=== PATIENT | female | born 1970 | race Caucasian/White ===

== ENCOUNTER → 2016-10-20 | Outpatient (CLI) | payer OTHER ==
[2016-10-20 14:10] VITALS: BP 167/79; PULSE 109; RESP 16; TEMP 98.7; BMI 46.0
--- NOTE | 2016-10-20 14:47 | P.HPBAR ---
Bariatric H&P - History & Physicial H&P Date: 10/20/16 History & Physicial: Visit/CC: SWL visit Patient initial contact: Initial weight: 139.253 kg Initial weight in pounds: 307.00 Height: 5 ft 5 in Initial BMI: 51.0 Last weight: Current weight: 125.362 kg Current weight in pounds: 276.00 Current BMI: 46.0 [place] body weight (based on NIH guidelines): 56.699 kg Excess body weight loss: 17.0% The patient is a 46 year-old F who presents for Bariatric Assessment. Patient presents for preop sleeve follow-up. The patient is still having dysphagia from her LAP-BAND. She has lost to be away from her last visit. Past Medical History Past Medical History: Hypertension Additional Past Medical History / Comment(s): HAVING DIFFICULTY WITH LAP BAND ( PER PATIENT) History of Any Multi-Drug Resistant Organisms: None Reported Past Surgical History: Bariatric Surgery, Section, Cholecystectomy Additional Past Surgical History / Comment(s): Lap band Past Anesthesia/Blood Transfusion Reactions: No Reported Reaction Past Psychological History: Anxiety, Depression Smoking Status: Former smoker Past Alcohol Use History: Occasional Additional Past Alcohol Use History / Comment(s): LIGHT SMOKER, QUIT IN 1991. Past Drug Use History: None Reported Surgical - Exam Vital Signs Temp Pulse Resp BP 98.7 F 109 H 16 167/79 10/20/16 14:05 10/20/16 14:05 10/20/16 14:05 10/20/16 14:05 - General well developed, no distress - Eyes PERRL - ENT normal pinna - Neck no masses - Respiratory normal expansion - Cardiovascular Rhythm: regular - Abdomen Abdomen: soft, non tender Bariatric Assessment & Plan Plan: Chronic GERD and dysphagia from LAP-BAND. Patient is attempting to obtain insurance authorization for conversion to sleeve gastrectomy. Her current BMI is 46. She'll follow up in 1 month. She'll continue taking omeprazole for GERD. Bariatric Checklist Checklist: Plan: Checklist: EGD: 1. Hiatal hernia: 2. H. Pylori: HgbA1c: Vitamin D: Smoking: Former smoker Primary care physician referral: DR CAMPOS Psychiatry clearance: Cardiology clearance: Sleep study: Diet journal: VTE risk score: VTE risk level: Rehab needs at discharge:
== END | disposition home or self-care (01) ==
LOC: BARWHC3 13:30
PROVIDERS: ATTEND Surgery
DX: Z48.815 Encounter for surgical aftercare following surgery on the digestive system (principal); R13.10 Dysphagia, unspecified; K21.9 Gastro-esophageal reflux disease without esophagitis; Z68.42 Body mass index [BMI] 45.0-49.9, adult; Z87.891 Personal history of nicotine dependence; Z79.899 Other long term (current) drug therapy; Z98.84 Bariatric surgery status
CPT/HCPCS: 99211

== ENCOUNTER → 2016-11-17 | Outpatient (CLI) | payer OTHER ==
[2016-11-17 15:31] VITALS: BP 145/78; PULSE 115; RESP 16; TEMP 98.5; BMI 45.4
--- NOTE | 2016-11-17 15:48 | P.HPBAR ---
Bariatric H&P - History & Physicial H&P Date: 11/17/16 History & Physicial: Visit/CC: BALWINDER Patient initial contact: Initial weight: 139.253 kg Initial weight in pounds: 307.00 Height: 5 ft 5 in Initial BMI: 51.0 Last weight: Current weight: 123.916 kg Current weight in pounds: 273.00 Current BMI: 45.4 [place] body weight (based on NIH guidelines): 56.699 kg Excess body weight loss: 18.6% The patient is a 46 year-old F who presents for Bariatric Assessment. The patient presents today for follow-up. Her current BMI is 45. Her weight is 273 pounds. She still is complaining of GERD due to her LAP-BAND. Past Medical History Past Medical History: Hypertension Additional Past Medical History / Comment(s): HAVING DIFFICULTY WITH LAP BAND ( PER PATIENT) History of Any Multi-Drug Resistant Organisms: None Reported Past Surgical History: Bariatric Surgery, Section, Cholecystectomy Additional Past Surgical History / Comment(s): Lap band Past Anesthesia/Blood Transfusion Reactions: No Reported Reaction Past Psychological History: Anxiety, Depression Smoking Status: Former smoker Past Alcohol Use History: Occasional Additional Past Alcohol Use History / Comment(s): LIGHT SMOKER, QUIT IN 1991. Past Drug Use History: None Reported Surgical - Exam Vital Signs Temp Pulse Resp BP 98.5 F 115 H 16 145/78 11/17/16 15:28 11/17/16 15:28 11/17/16 15:28 11/17/16 15:28 - General well developed, no distress - Eyes PERRL - ENT normal pinna - Neck no masses - Respiratory normal expansion - Cardiovascular Rhythm: regular - Abdomen Abdomen: soft, non tender Bariatric Assessment & Plan Plan: GERD secondary LAP-BAND. Patient wishes to have her LAP-BAND removed in conversion sleeve gastrectomy. Patient continue Prilosec. Bariatric Checklist Checklist: Plan: Checklist: EGD: 1. Hiatal hernia: 2. H. Pylori: HgbA1c: Vitamin D: Smoking: Former smoker Primary care physician referral: DR CAMPOS Psychiatry clearance: Cardiology clearance: Sleep study: Diet journal: VTE risk score: VTE risk level: Rehab needs at discharge:
== END | disposition home or self-care (01) ==
LOC: BARWHC3 14:46
PROVIDERS: ATTEND Surgery
DX: Z48.815 Encounter for surgical aftercare following surgery on the digestive system (principal); E66.01 Morbid (severe) obesity due to excess calories; Z68.42 Body mass index [BMI] 45.0-49.9, adult; K21.9 Gastro-esophageal reflux disease without esophagitis; Z87.891 Personal history of nicotine dependence; Z79.899 Other long term (current) drug therapy
CPT/HCPCS: 99211

== ENCOUNTER → 2016-12-15 | Outpatient (CLI) | payer OTHER ==
[2016-12-15 17:12] VITALS: BP 132/78; PULSE 104; RESP 16; TEMP 98.4; BMI 46.0
--- NOTE | 2016-12-16 08:06 | P.HPBAR ---
Bariatric H&P - History & Physicial H&P Date: 12/16/16 History & Physicial: Visit/CC: last SWL Patient initial contact: Initial weight: 139.253 kg Initial weight in pounds: 307.00 Height: 5 ft 5 in Initial BMI: 51.0 Last weight: Current weight: 125.645 kg Current weight in pounds: 277.00 Current BMI: 46.0 [place] body weight (based on NIH guidelines): 56.699 kg Excess body weight loss: 16.4% The patient is a 46 year-old F who presents for Bariatric Assessment. This is a 46-year-old female who presents for bariatric follow up. Patient is requesting to have sleeve gastrectomy. She states that she is unable lose any weight by further dieting. She still has complaints of GERD due to her LAP- BAND. Her BMI today is 46.1 Review of Systems Constitutional: Reports as per HPI Past Medical History Past Medical History: Hypertension Additional Past Medical History / Comment(s): HAVING DIFFICULTY WITH LAP BAND ( PER PATIENT) History of Any Multi-Drug Resistant Organisms: None Reported Past Surgical History: Bariatric Surgery, Section, Cholecystectomy Additional Past Surgical History / Comment(s): Lap band Past Anesthesia/Blood Transfusion Reactions: No Reported Reaction Past Psychological History: Anxiety, Depression Smoking Status: Former smoker Past Alcohol Use History: Occasional Additional Past Alcohol Use History / Comment(s): LIGHT SMOKER, QUIT IN 1991. Past Drug Use History: None Reported Surgical - Exam Vital Signs Temp Pulse Resp BP 98.4 F 104 H 16 132/78 12/15/16 16:34 12/15/16 16:34 12/15/16 16:34 12/15/16 16:34 - General well developed, no distress - Eyes PERRL - ENT normal pinna - Neck no masses - Respiratory normal expansion - Cardiovascular Rhythm: regular - Abdomen Abdomen: soft, non tender Bariatric Assessment & Plan Plan: Morbid obesity. GERD due to LAP-BAND. Patient will hopefully be authorized for removal LAP-BAND and conversion sleeve gastrectomy. Bariatric Checklist Checklist: Plan: Checklist: EGD: 1. Hiatal hernia: 2. H. Pylori: HgbA1c: Vitamin D: Smoking: Former smoker Primary care physician referral: DR CAMPOS Psychiatry clearance: Cardiology clearance: Sleep study: Diet journal: VTE risk score: VTE risk level: Rehab needs at discharge:
== END | disposition home or self-care (01) ==
LOC: BARWHC3 14:12
PROVIDERS: ATTEND Surgery
DX: Z48.815 Encounter for surgical aftercare following surgery on the digestive system (principal); K21.9 Gastro-esophageal reflux disease without esophagitis; E66.01 Morbid (severe) obesity due to excess calories; Z68.42 Body mass index [BMI] 45.0-49.9, adult; T85.9XXA Unspecified complication of internal prosthetic device, implant and graft, initial encounter; Z98.84 Bariatric surgery status; Z87.891 Personal history of nicotine dependence
CPT/HCPCS: 99211

== ENCOUNTER → 2016-12-22 | Outpatient (CLI) | payer OTHER ==
[2016-12-22 17:17] VITALS: BMI 46.2
== END | disposition home or self-care (01) ==
LOC: BARWHC3 08:40
PROVIDERS: ATTEND Surgery
DX: E66.01 Morbid (severe) obesity due to excess calories (principal)
CPT/HCPCS: 97804

== ENCOUNTER → 2017-01-12 | Outpatient (CLI) | payer OTHER ==
[2017-01-12 15:43] VITALS: BP 131/71; PULSE 94; TEMP 97.9; BMI 46.2
--- NOTE | 2017-01-12 16:40 | P.HPBAR ---
Bariatric H&P - History & Physicial H&P Date: 01/12/17 History & Physicial: Visit/CC: preop visit Patient initial contact: Initial weight: 139.253 kg Initial weight in pounds: 307.00 Height: 5 ft 5 in Initial BMI: 51.0 Last weight: Current weight: 126.099 kg Current weight in pounds: 278.00 Current BMI: 46.2 [place] body weight (based on NIH guidelines): 56.699 kg Excess body weight loss: 15.9% The patient is a 46 year-old F who presents for Bariatric Assessment. Patient presents for bariatric follow-up. She's had problems with chronic dysphagia and GERD from her LAP-BAND. Her LAP-BAND is emptied. She still has complaints of dysphagia. Past Medical History Past Medical History: Hypertension Additional Past Medical History / Comment(s): HAVING DIFFICULTY WITH LAP BAND ( PER PATIENT) History of Any Multi-Drug Resistant Organisms: None Reported Past Surgical History: Bariatric Surgery, Section, Cholecystectomy Additional Past Surgical History / Comment(s): Lap band Past Anesthesia/Blood Transfusion Reactions: No Reported Reaction Past Psychological History: Anxiety, Depression Smoking Status: Former smoker Past Alcohol Use History: Occasional Additional Past Alcohol Use History / Comment(s): LIGHT SMOKER, QUIT IN 1991. Past Drug Use History: None Reported Surgical - Exam Vital Signs Temp Pulse BP 97.9 F 94 131/71 01/12/17 15:33 01/12/17 15:33 01/12/17 15:33 - General well developed, no distress - Eyes PERRL - ENT normal pinna - Neck no masses - Respiratory normal expansion - Abdomen Abdomen: soft, non tender Bariatric Assessment & Plan Plan: The patient will obtain insurance authorization for conversion sleeve gastrectomy. She has had chronic issues with GERD and dysphagia with her LAP- BAND emptied. She will follow-up in one month. Bariatric Checklist Checklist: Plan: Checklist: EGD: 1. Hiatal hernia: 2. H. Pylori: HgbA1c: Vitamin D: Smoking: Former smoker Primary care physician referral: DR CAMPOS Psychiatry clearance: Cardiology clearance: Sleep study: Diet journal: VTE risk score: VTE risk level: Rehab needs at discharge:
== END | disposition home or self-care (01) ==
LOC: BARWHC3 13:28
PROVIDERS: ATTEND Surgery
DX: K21.9 Gastro-esophageal reflux disease without esophagitis (principal); Z87.891 Personal history of nicotine dependence; Z98.84 Bariatric surgery status
CPT/HCPCS: 99211

== ENCOUNTER → 2017-04-16 | Outpatient (CLI) | payer OTHER ==
[2017-04-16 11:54] LABS: Basophils % (A) 1 %; CH 28.4; CHCM 34.3; Eosinophils # (A) 0.2 k/uL (0-0.7); Eosinophils % (A) 2 %; HCT 35.2 % (34.0-46.0); HDW 2.77; HGB 11.9 gm/dL (11.4-16.0); Luc # (Auto) 0.17; Luc % (Auto) 3; Lymphocytes # (A) 2.3 k/uL (1.0-4.8); Lymphocytes % (A) 35 %; MCH 28.1 pg (25.0-35.0); MCHC 33.9 g/dL (31.0-37.0); MCV 82.9 fL (80.0-100.0); Mean Platelet Volume 6.7; Monocytes # (A) 0.4 k/uL (0-1.0); Monocytes % (A) 6 %; Neutrophils # (A) 3.5 k/uL (1.3-7.7); Neutrophils % (A) 54 %; RBC 4.25 m/uL (3.80-5.40); RDW 13.5 % (11.5-15.5); WBC 6.5 k/uL (3.8-10.6); WBC (Perox) 6.54
[2017-04-16 12:08] LABS: ALT 38 U/L (9-52); AST 18 U/L (14-36); Alkaline Phosphatase 67 U/L (38-126); Anion Gap 12 mmol/L; Blood Urea Nitrogen 12 mg/dL (7-17); Calcium 9.5 mg/dL (8.4-10.2); Carbon Dioxide 25 mmol/L (22-30); Chloride 101 mmol/L (98-107); Glucose 156 mg/dL (74-99); Non-African American GFR(MDRD) >60 (>60 ml/min/1.73 sqM); Potassium 3.8 mmol/L (3.5-5.1); Sodium 138 mmol/L (137-145); Total Bilirubin 0.6 mg/dL (0.2-1.3); Total Protein 7.1 g/dL (6.3-8.2)
[2017-04-16 22:34] LABS: Hemoglobin A1C 7.1 % (4.2-6.1)
== END | disposition home or self-care (01) ==
LOC: LABPAT 11:34
PROVIDERS: ATTEND Surgery
DX: Z01.812 Encounter for preprocedural laboratory examination (principal)
CPT/HCPCS: 80053; 83036; 85025

== ENCOUNTER 2017-05-04 09:30 | Inpatient (IN) | payer OTHER ==
[2017-04-29 11:11] VITALS: BMI 41.9
[~2017-05-04 09:30] MED LIST: CLINDAMYCIN 900 MG in DEXTROSE 5% IN WATER 50 ML IVPB ONE; DEXAMETHASONE SOD PHOSPHATE 10 MG/ML 1 ML VIAL IV ONE; GENTAMICIN 400 MG in SODIUM CHLORIDE 0.9% 100 ML IVPB ONE; HYDROmorphone 1 MG/ML 1 ML SYRINGE IVP PRN; ONDANSETRON 4 MG/2 ML VIAL IVP ONE
[2017-05-04] MEDS ORDERED: LIDOCAINE 1% 20 ML VIAL (10MG/ML) FOR IV START INTRADERMA ONE (11:45)
[2017-05-04] MEDS ORDERED: LACTATED RINGERS 1,000 ML IV ONE (11:45)
[2017-05-04] MEDS ORDERED: SCOPOLAMINE 1.5MG/72HR PATCH TRANSDERM ONE (11:47)
[2017-05-04 11:50] LABS: Glucose,Whole Blood 201 mg/dL (75-99)
--- NOTE | 2017-05-04 12:42 | P.GSHP ---
History of Present Illness H&P Date: 05/04/17 Chief Complaint: Chronic dysphagia Is a 46-year-old female who presents today for laparoscopic removal of LAP-BAND and conversion to sleeve gastrectomy. Patient's had chronic issues with dysphagia. He is unable have her LAP-BAND adjustable. Past Medical History Past Medical History: Diabetes Mellitus, Hypertension Additional Past Medical History / Comment(s): past hx. kidney stone, dysphagia @ times History of Any Multi-Drug Resistant Organisms: None Reported Past Surgical History: Bariatric Surgery, Section, Cholecystectomy Additional Past Surgical History / Comment(s): Lap band Past Anesthesia/Blood Transfusion Reactions: Motion Sickness, Postoperative Nausea & Vomiting (PONV) Smoking Status: Former smoker - Past Family History Mother Family Medical History: No Reported History Medications and Allergies Home Medications Medication Instructions Recorded Confirmed Type Lisinopril-Hctz 20-25 mg 2 tab PO QAM 07/14/15 04/29/17 History [Zestoretic 20-25] PARoxetine [Paxil] 20 mg PO QAM 07/14/15 04/29/17 History metFORMIN HCL 1,000 mg PO QAM 04/29/17 05/04/17 History Allergies Allergy/AdvReac Type Severity Reaction Status Date / Time Penicillins Allergy Unknown Verified 04/29/17 08:19 Surgical - Exam Vital Signs Temp Pulse Resp BP Pulse Ox 98.1 F 99 18 166/100 99 05/04/17 11:29 05/04/17 11:29 05/04/17 11:29 05/04/17 11:29 05/04/17 11:29 Body mass index is 42 - General well developed, no distress - Eyes PERRL - ENT normal pinna - Neck no masses - Respiratory normal expansion - Cardiovascular Rhythm: regular - Abdomen Abdomen: soft, non tender Results - Labs Abnormal Lab Results - Last 24 Hours (Table) 05/04/17 Range/Units 11:49 POC Glucose (mg/dL) 201 H (75-99) mg/dL Assessment and Plan Plan: Morbid obesity BMI 42 Chronic dysphagia from LAP-BAND. We'll perform laparoscopic removal of LAP- BAND system with conversion to sleeve gastrectomy.
[2017-05-04] MEDS ORDERED: HEPARIN SODIUM,PORCINE 5,000 UNIT/ML 1 ML VIAL SQ ONE (12:44)
[2017-05-04] MEDS ORDERED: PHENYLEPHRINE-0.9% NACL SYG 1 MG/10 ML SYRINGE ONE (13:22)
[2017-05-04] MEDS ORDERED: fentaNYL (PF) 50 MCG/ML 2 ML AMP ONE (13:22)
[2017-05-04] MEDS ORDERED: MIDAZOLAM 2 MG/2 ML VIAL ONE (13:22)
[2017-05-04] MEDS ORDERED: ROCURONIUM BROMIDE 10 MG/ML 10 ML VIAL IV ONE (13:22)
[2017-05-04] MEDS ORDERED: PROPOFOL 10 MG/ML 20 ML VIAL IV ONE (13:22)
[2017-05-04] MEDS ORDERED: LIDOCAINE 1% INJ 10MG/ML (20 ML MDV) ONE (13:22)
[2017-05-04] MEDS ORDERED: HYDROmorphone (PF) 1 MG/ML ONE (13:22)
[2017-05-04] MEDS ORDERED: GLYCOPYRROLATE 0.2 MG/ML 2 ML VIAL ONE (13:22)
[2017-05-04] MEDS ORDERED: NEOSTIGMINE 1 MG/ML 10 ML VIAL ONE (13:22)
[2017-05-04] MEDS ORDERED: BUPIVACAINE-EPI 0.5%-1:200,000 10 ML VIAL SQ ONE (14:00)
[2017-05-04] MEDS ORDERED: ONDANSETRON 4 MG/2 ML VIAL IVP PRN (15:02)
[2017-05-04] MEDS ORDERED: ACETAMINOPHEN IV (For NPO) 1,000 MG in EMPTY BAG 1 BAG IVPB ONE (15:02)
[2017-05-04] MEDS ORDERED: HYDROmorphone 1 MG/ML 1 ML SYRINGE IVP PRN (15:02)
[2017-05-04] MEDS ORDERED: NALOXONE 0.4 MG/ML 1 ML VIAL IV PRN (15:02)
[2017-05-04] MEDS ORDERED: diphenhydrAMINE 50 MG/ML 1 ML VIAL IVP ONE (15:45)
[2017-05-04] MEDS ORDERED: ACETAMINOPHEN IV (For NPO) 1,000 MG/100 ML VIAL IVPB ONE (15:49)
[2017-05-04] MEDS: LACTATED RINGERS 1,000 ML IV SCH (16:39)
[2017-05-04] MEDS: ALBUTEROL NEBULIZED 2.5 MG/3 ML INHALATION SCH ×2 (19:06→19:09)
[2017-05-04 20:04] LABS: Glucose,Whole Blood 236 mg/dL (75-99)
[2017-05-04] MEDS: INSULIN LISPRO (humaLOG) 300 UNIT/3 ML VIAL SQ SCH (21:27)
[2017-05-04] MEDS: 0.9% NACL WITH KCL 20 MEQ/L 1,000 ML IV SCH (21:29)
[2017-05-05 07:41] VITALS: BP 127/63; RESP 16; TEMP 98.3
[2017-05-05 07:43] LABS: Glucose,Whole Blood 140 mg/dL (75-99)
[2017-05-05] MEDS: 0.9% NACL WITH KCL 20 MEQ/L 1,000 ML IV SCH (08:32)
[2017-05-05] MEDS: LACTATED RINGERS 1,000 ML IV SCH (08:32)
[2017-05-05] MEDS: INSULIN LISPRO (humaLOG) 300 UNIT/3 ML VIAL SQ SCH ×2 (08:33→14:10)
[2017-05-05 08:42] LABS: Basophils % (A) 0 %; CH 29.1; CHCM 33.8; Eosinophils % (A) 0 %; HCT 35.6 % (34.0-46.0); HGB 11.4 gm/dL (11.4-16.0); Luc # (Auto) 0.19; Luc % (Auto) 2; Lymphocytes # (A) 1.8 k/uL (1.0-4.8); Lymphocytes % (A) 21 %; MCH 27.7 pg (25.0-35.0); MCHC 31.9 g/dL (31.0-37.0); MCV 86.6 fL (80.0-100.0); Mean Platelet Volume 6.9; Monocytes # (A) 0.5 k/uL (0-1.0); Monocytes % (A) 6 %; Neutrophils # (A) 5.9 k/uL (1.3-7.7); Neutrophils % (A) 70 %; RBC 4.11 m/uL (3.80-5.40); WBC 8.4 k/uL (3.8-10.6); WBC (Perox) 8.54
[2017-05-05 08:58] LABS: Anion Gap 11 mmol/L; Blood Urea Nitrogen 11 mg/dL (7-17); Calcium 8.9 mg/dL (8.4-10.2); Carbon Dioxide 24 mmol/L (22-30); Chloride 103 mmol/L (98-107); Magnesium 1.6 mg/dL (1.6-2.3); Non-African American GFR(MDRD) >60 (>60 ml/min/1.73 sqM); Phosphorous 3.4 mg/dL (2.5-4.5); Potassium 4.2 mmol/L (3.5-5.1); Sodium 138 mmol/L (137-145)
[2017-05-05] MEDS ORDERED: PARoxetine 20 MG TAB PO SCH (09:00)
[2017-05-05] MEDS ORDERED: LISINOPRIL-HCTZ 20-25 MG 1 EACH TAB PO SCH (09:00)
[2017-05-05] MEDS ORDERED: ENOXAPARIN 40 MG/0.4 ML SYRINGE SQ SCH (09:00)
[2017-05-05] MEDS ORDERED: PANTOPRAZOLE 40 MG/10 ML VIAL IV SCH (09:00)
[2017-05-05] MEDS: ALBUTEROL NEBULIZED 2.5 MG/3 ML INHALATION SCH (09:19)
--- NOTE | 2017-05-05 10:09 | FL ---
SINGLE CONTRAST UPPER GI EXAMINATION: CLINICAL HISTORY: 46-year-old female postop bariatric surgery TECHNIQUE: Single contrast exam performed with 50 ml Omnipaque 350 contrast. Total fluoroscopy time: 27 seconds. Total images: 17. FINDINGS: The patient swallowed oral contrast without difficulty or delay. Esophageal peristalsis and motility are within normal limits. There is good flow of contrast across the GE junction. Postsurgical change s of sleeve gastrectomy are demonstrated. Contrast is seen passing into the duodenum fourth and of th e study. There is no evidence of contrast extravasation to suggest leak. No poor surgical free air. S ome mildly prominent colonic loops with air-fluid levels are noted in the upper abdomen. IMPRESSION: 1. No evidence of leak or significant obstruction status post gastrectomy. 2. There may be a mild ileus given prominent colon with air-fluid levels in the upper abdomen.
[2017-05-05] MEDS ORDERED: LACTATED RINGERS 1,000 ML IV SCH (11:00)
[2017-05-05 11:41] LABS: Glucose,Whole Blood 175 mg/dL (75-99)
[2017-05-05] MEDS ORDERED: Potassium Replacement Protocol 1 EACH MISC MISCELLANE PRN (11:49)
[2017-05-05] MEDS ORDERED: Magnesium Replacement Protocol 1 EACH MISC MISCELLANE PRN (11:49)
--- NOTE | 2017-05-05 11:49 | P.CONS ---
History of Present Illness - Reason for Consult Consult date: 05/05/17 Medical management - Chief Complaint Morbid obesity - History of Present Illness This is a 46-year-old female with past medical history noted below who was admitted to the hospital for lap band removal and conversion to hysterectomy. Patient is postoperative day #1. She tolerated the surgery well. No complications reported. Patient is currently on liquid diet with no difficulty. She denies any nausea. I was asked to see her for medical management. Review of Systems Review of system: 14 points review of systems were obtained and were negative except to what were mentioned in the HPI. Past Medical History Past Medical History: Diabetes Mellitus, Hypertension Additional Past Medical History / Comment(s): past hx. kidney stone, dysphagia @ times History of Any Multi-Drug Resistant Organisms: None Reported Past Surgical History: Bariatric Surgery, Section, Cholecystectomy Additional Past Surgical History / Comment(s): Lap band Past Anesthesia/Blood Transfusion Reactions: Motion Sickness, Postoperative Nausea & Vomiting (PONV) Smoking Status: Former smoker - Past Family History Mother Family Medical History: No Reported History Medications and Allergies Home Medications Medication Instructions Recorded Confirmed Type Lisinopril-Hctz 20-25 mg 2 tab PO QAM 07/14/15 05/04/17 History [Zestoretic 20-25] PARoxetine [Paxil] 20 mg PO QAM 07/14/15 05/04/17 History metFORMIN HCL 1,000 mg PO QAM 04/29/17 05/04/17 History Allergies Allergy/AdvReac Type Severity Reaction Status Date / Time Penicillins Allergy Unknown Verified 05/04/17 16:36 Physical Exam Vitals: Vital Signs Temp Pulse Pulse Pulse Resp BP Pulse Ox 05/05/17 09:32 86 05/05/17 09:19 80 16 05/05/17 07:00 98.3 F 89 16 127/63 96 05/05/17 02:34 98.2 F 80 17 177/51 98 05/04/17 20:47 98.2 F 100 129/63 05/04/17 20:00 106 H 05/04/17 19:29 97 05/04/17 19:22 102 H 05/04/17 19:10 98 05/04/17 18:30 99 131/62 05/04/17 18:15 114 H 127/62 05/04/17 18:00 108 H 128/70 05/04/17 17:45 107 H 110/57 05/04/17 17:30 109 H 119/61 05/04/17 17:15 107 H 118/59 05/04/17 17:00 107 H 115/58 05/04/17 16:45 97.6 F 101 H 16 116/59 93 L 05/04/17 16:01 108 H 16 152/74 93 L 05/04/17 15:46 112 H 16 152/75 98 05/04/17 15:30 108 H 16 149/68 97 05/04/17 15:16 97.6 F 108 H 16 138/65 96 Intake and Output 05/04/17 05/05/17 05/05/17 22:59 06:59 14:59 Intake Total 1050 1200 Balance 1050 1200 Intake: IV 600 Intake, IV Titration 450 1200 Amount 0.9% NaCl with KCl 20 Meq 450 1200 /l 1,000 ml @ 150 mls/hr IV .[id number] MARILYN Rx#: [id number] Other: # Voids 3 4 General: The patient is awake and alert, in no distress Eye: there is normal conjunctiva bilaterally. Neck: The neck is supple, there is no JVD. Cardiovascular: Normal S1-S2, no S3-S4, no murmurs. Respiratory: Lungs clear to auscultation bilaterally Gastrointestinal: Abdomen is soft, nontender Musculoskeletal: There is no pedal edema. Neurological:. Speech is normal. Skin: Skin is warm and dry Results CBC & Chem 7: 05/05/17 08:09 05/05/17 08:09 Labs: Abnormal Lab Results - Last 24 Hours (Table) 05/04/17 05/04/17 05/05/17 Range/Units 11:49 20:02 07:31 POC Glucose (mg/dL) 201 H 236 H 140 H (75-99) mg/dL 05/05/17 Range/Units 11:20 POC Glucose (mg/dL) 175 H (75-99) mg/dL Assessment and Plan Plan: 1. Postoperative day #1 status post removal of lap band and conversion to sleep gastrectomy 2. Type 2 diabetes: Continue to hold metformin for now. Sliding scale insulin as needed. 3. Essential hypertension: Blood pressure well controlled. Continue lisinopril /hydrochlorothiazide at current dose for now. 4. DVT prophylaxis with subcu heparin Today, I reviewed her medication list lab results. Continue postoperative care. I would continue to follow up on her closely. Thank you very much for the consultation.
[2017-05-05] MEDS ORDERED: MAGNESIUM SULFATE-D5W PMX 1 GM in DEXTROSE/WATER 1 100ML.BAG IVPB SCH (12:30)
[2017-05-05 12:52] VITALS: PULSE 88
--- NOTE | 2017-05-05 13:49 | P.DS ---
Providers Date of admission: 05/04/17 10:56 Expected date of discharge: 05/05/17 Attending physician: Rico Edwards Consults: 05/04/17 15:02 Consult Physician Routine Consulting Provider: Shira Ponce Consult Reason/Comments: Medical management Do you want consulting provider notified?: Yes Primary care physician: Gela Mercy Hospital Course: 6-year-old female who is postop done on May 04 removal of the LAP-BAND conversion to a sleeve gastrectomy. Patient has had chronic issues with dysphagia. Patient was unable to have her LAP-BAND adjustment. Postop there were no events and patient was seen by the surgeon and felt to be medically stable and appropriate to proceed with a discharge to home Impression discharge diagnoses Laparoscopic removal of a lap band and conversion to a gastric sleeve Chronic dysphasia Unable to have lap band adjusted Hypertension The above impression and plan of care have been discussed and directed by signing physician. Marielle Thakkar nurse practitioner acting as scribe for signing physician. Plan - Discharge Summary New Discharge Prescriptions: New HYDROcodone/APAP 7.5-325MG [Ponca 7.5-325] 1 tab PO Q4H PRN #30 tab PRN Reason: Mild Discomfort Ondansetron [Zofran] 4 mg PO Q8HR PRN #30 tab PRN Reason: Mild Nausea And/Or Anxiety Omeprazole [PriLOSEC] 40 mg PO DAILY #30 capsule.dr Lanza PARoxetine [Paxil] 20 mg PO QAM Lisinopril-Hctz 20-25 mg [Zestoretic 20-25] 2 tab PO QAM metFORMIN HCL 1,000 mg PO QAM Discharge Medication List Lisinopril-Hctz 20-25 mg [Zestoretic 20-25] 2 tab PO QAM 07/14/15 [History] PARoxetine [Paxil] 20 mg PO QAM 07/14/15 [History] metFORMIN HCL 1,000 mg PO QAM 04/29/17 [History] HYDROcodone/APAP 7.5-325MG [Ponca 7.5-325] 1 tab PO Q4H PRN #30 tab 05/05/17 [Rx ] Omeprazole [PriLOSEC] 40 mg PO DAILY #30 capsule. 05/05/17 [Rx] Ondansetron [Zofran] 4 mg PO Q8HR PRN #30 tab 05/05/17 [Rx] Follow up Appointment(s)/Referral(s): Rico Edwards MD [STAFF PHYSICIAN] - 1 Week Patient Instructions/Handouts: *Surgery [facility] - Scopalamine Patch Instructions Discharge Disposition: HOME SELF-CARE
[2017-05-05 14:02] LABS: Hemoglobin A1C 6.9 % (4.2-6.1)
[2017-05-05] MEDS ORDERED: MAGNESIUM OXIDE 400 MG TAB PO STA (14:02)
--- NOTE | 2017-05-31 19:28 | P.OP ---
Date of Procedure: 05/04/17 Preoperative Diagnosis: Morbid obesity Gastric prolapse Postoperative Diagnosis: Morbid obesity Gastric prolapse Procedure(s) Performed: laparoscopic removal of LAP-BAND system Laparoscopic sleeve gastrectomy Implants: Anesthesia: CHRISTIANA Surgeon: Rico Edwards Estimated Blood Loss (ml): 5 Pathology: other (Stomach) Condition: stable Disposition: PACU Indications for Procedure: Operative Findings: Description of Procedure: The patient's placed on the operating table in the supine position. She received general anesthesia. She was then placed in dorsal lithotomy position. Her abdomen was prepped and draped in usual sterile fashion. The skin incision sites were anesthetized 1% local Xylocaine. Then using 11 blade the skin was incised at the port site and using blunt and sharp dissection with cautery the LAP-BAND port was dissected free from some taste tissues. The T- tube tube was then cut. And then using a 5 mm optical trocar the abdomen was entered. After adequate insufflation the laparoscope placed back the peritoneal cavity. And then a 5 mm trochars placed in the right epigastric position and another fibrillar trocar is placed in the right lateral position a 5 mm trochars placed in the left lateral position. A 15 mm trocar was placed at the umbilicus. The adhesions to the LAP-BAND device were seen. These were lysed using sharp dissection with cautery. A lap band buckle was then dissected free the LAP-BAND was then cut The buckle. And then the LAP-BAND device was withdrawn through the 15 mm trocar site. Next the anterior gastric wall plication was taken down using sharp dissection and then the greater curvature of the stomach was dissected using the Harmonic scissors. Care was taken to identify and preserve the stomach. The short gastric vessels were divided. A 40-Albanian bougie dilator placed oropharynx and passed into the esophagus and stomach. The sleeve gastrectomy was then performed using the powered MELVA stapler. Seam guard was used as buttress material. Sequential firing the stapler were used to perform the gastrectomy. The gastric specimen was then brought out through 50 [place]andaverde trocar site. The gastric sleeve was then insufflated with methylene blue normal saline. There is no active extravasation. At this point the abdomen was irrigated. There is no bleeding seen. The trochars withdrawn. The fascia of the 50 Landaverde trocar site was closed with 0 Ethibond suture. Skin was closed mike. Patient top she will well and was sent to recovery in similar condition.
== END 2017-05-05 14:40 | disposition home or self-care (01) | DRG 327 ==
LOC: 2ORWHC 10:56 → 3SUR 15:39
PROVIDERS: ADMIT Surgery; ATTEND Surgery
PROC: 0DP64CZ Removal of Extraluminal Device from Stomach, Percutaneous Endoscopic Approach (ICD-10-PCS; principal; 2017-05-04 12:20)
PROC: 0DB64Z3 Excision of Stomach, Percutaneous Endoscopic Approach, Vertical (ICD-10-PCS; principal; 2017-05-04 12:20)
DX: R13.19 Other dysphagia (principal); Z68.41 Body mass index [BMI] 40.0-44.9, adult; I10 Essential (primary) hypertension; E66.01 Morbid (severe) obesity due to excess calories; E11.9 Type 2 diabetes mellitus without complications; Z79.899 Other long term (current) drug therapy; Z87.442 Personal history of urinary calculi; Z87.891 Personal history of nicotine dependence; Z88.0 Allergy status to penicillin; Z79.84 Long term (current) use of oral hypoglycemic drugs
CPT/HCPCS: 74240; 80051; 81025; 82310; 82565; 83036; 83735; 84100; 84520; 85025; 88307; 94640

== ENCOUNTER → 2017-05-18 | Outpatient (CLI) | payer OTHER ==
[2017-05-18 14:10] VITALS: BP 123/61; PULSE 120; TEMP 98.5; BMI 39.4
--- NOTE | 2017-05-18 14:24 | P.HPBAR ---
Bariatric H&P - History & Physicial H&P Date: 05/18/17 History & Physicial: Visit/CC: two week post op visit Patient initial contact: Initial weight: 139.253 kg Initial weight in pounds: 307.00 Height: 5 ft 5 in Initial BMI: 51.0 Last weight: 252 Current weight: 107.365 kg Current weight in pounds: 236.70 Current BMI: 39.4 [place] body weight (based on NIH guidelines): 56.699 kg Excess body weight loss: 38.6% The patient is a 46 year-old F who presents for Bariatric Assessment. The patient presents today for sleeve gastrectomy fall. She is 2 weeks postop. She has lost approximately 17 pounds since surgery. Past Medical History Past Medical History: Hypertension Additional Past Medical History / Comment(s): HAVING DIFFICULTY WITH LAP BAND ( PER PATIENT) History of Any Multi-Drug Resistant Organisms: None Reported Past Surgical History: Bariatric Surgery, Section, Cholecystectomy Additional Past Surgical History / Comment(s): Lap band Past Anesthesia/Blood Transfusion Reactions: No Reported Reaction Smoking Status: Former smoker - Past Family History Mother Family Medical History: No Reported History Surgical - Exam Vital Signs Temp Pulse BP 98.5 F 120 H 123/61 05/18/17 14:07 05/18/17 14:07 05/18/17 14:07 - General well developed, no distress - Eyes PERRL - Abdomen Incision sites are clean dry and intact Abdomen: soft, non tender Bariatric Assessment & Plan Plan: Status post sleeve gastrectomy. Patient is doing quite well. She is an excellent weight loss. She'll follow-up in 2 weeks. Bariatric Checklist Checklist: Plan: Checklist: EGD: 1. Hiatal hernia: 2. H. Pylori: HgbA1c: Vitamin D: Smoking: Former smoker Primary care physician referral: DR CAMPOS Psychiatry clearance: Cardiology clearance: Sleep study: Diet journal: VTE risk score: VTE risk level: Rehab needs at discharge:
== END | disposition home or self-care (01) ==
LOC: BARWHC3 13:33
PROVIDERS: ATTEND Surgery
DX: Z48.815 Encounter for surgical aftercare following surgery on the digestive system (principal); Z98.84 Bariatric surgery status; E66.01 Morbid (severe) obesity due to excess calories; F17.200 Nicotine dependence, unspecified, uncomplicated
CPT/HCPCS: 97803; 99211

== ENCOUNTER → 2017-06-01 | Outpatient (CLI) | payer OTHER ==
[2017-06-01 14:53] VITALS: BP 133/75; PULSE 115; RESP 16; TEMP 99.2; BMI 38.9
--- NOTE | 2017-06-01 15:08 | P.HPBAR ---
Bariatric H&P - History & Physicial H&P Date: 06/01/17 History & Physicial: Visit/CC: Patient initial contact: Initial weight: 139.253 kg Initial weight in pounds: 307.00 Height: 5 ft 5 in Initial BMI: 51.0 Last weight: 237 Current weight: 106.226 kg Current weight in pounds: 234.00 Current BMI: 38.9 [place] body weight (based on NIH guidelines): 56.699 kg Excess body weight loss: 40.1% The patient is a 46 year-old F who presents for Bariatric Assessment. He presents today for gastric sleeve follow-up. He is doing quite well. She has some mild and secured. Past Medical History Past Medical History: Hypertension Additional Past Medical History / Comment(s): HAVING DIFFICULTY WITH LAP BAND ( PER PATIENT) History of Any Multi-Drug Resistant Organisms: None Reported Past Surgical History: Bariatric Surgery, Section, Cholecystectomy Additional Past Surgical History / Comment(s): Lap band Past Anesthesia/Blood Transfusion Reactions: No Reported Reaction Smoking Status: Former smoker - Past Family History Mother Family Medical History: No Reported History Surgical - Exam Vital Signs Temp Pulse Resp BP 99.2 F 115 H 16 133/75 06/01/17 14:36 06/01/17 14:36 06/01/17 14:36 06/01/17 14:36 - General well developed, no distress - Eyes PERRL - ENT normal pinna - Abdomen Abdomen: soft, non tender Bariatric Assessment & Plan Plan: Status post sleeve gastric. Patient did quite well. Her GERD symptoms are minimal and will be observed. She'll follow-up in one month. Bariatric Checklist Checklist: Plan: Checklist: EGD: 1. Hiatal hernia: 2. H. Pylori: HgbA1c: Vitamin D: Smoking: Former smoker Primary care physician referral: DR CAMPOS Psychiatry clearance: Cardiology clearance: Sleep study: Diet journal: VTE risk score: VTE risk level: Rehab needs at discharge:
== END ==
LOC: BARWHC3 13:53
PROVIDERS: ATTEND Surgery
DX: Z48.815 Encounter for surgical aftercare following surgery on the digestive system (principal); E66.01 Morbid (severe) obesity due to excess calories; Z98.84 Bariatric surgery status; F17.200 Nicotine dependence, unspecified, uncomplicated
CPT/HCPCS: 97803; 99211

== ENCOUNTER → 2017-06-26 | Outpatient (CLI) | payer OTHER ==
--- NOTE | 2017-06-29 10:05 | MM ---
Reason for exam: screening (asymptomatic). Last mammogram was performed 2 years and 3 months ago. Physical Findings: A clinical breast exam by your physician is recommended on an annual basis and results should be correlated with mammographic findings. MG 3D Screening Mammo W/Cad Bilateral CC and MLO view(s) were taken. Prior study comparison: March 12, 2015, bilateral MG screening mammo w CAD. September 03, 2005, mammogram, performed at [facility]. There are scattered fibroglandular densities. Finding #1: There is a 8 mm mass located 4.4 cm from the nipple. Finding #2: There are new grouped/clustered calcifications in the upper outer quadrant of the left breast. New finding since March 12, 2015 and September 03, 2005. ASSESSMENT: Incomplete: need additional imaging evaluation, BI-RAD 0 RECOMMENDATION: Special view mammogram and ultrasound of the left breast. [facility] will attempt to contact patient to return for supplemental views and ultrasound.
== END | disposition home or self-care (01) ==
LOC: RADMAMWWP 07:02
PROVIDERS: ATTEND Family Medicine
DX: Z12.31 Encounter for screening mammogram for malignant neoplasm of breast (principal)
CPT/HCPCS: 77063; G0202

== ENCOUNTER → 2017-06-29 | Outpatient (CLI) | payer OTHER ==
[2017-06-29 13:32] VITALS: BP 115/70; PULSE 93; RESP 16; BMI 37.9
--- NOTE | 2017-06-29 16:32 | P.HPBAR ---
Bariatric H&P - History & Physicial H&P Date: 06/29/17 History & Physicial: Visit/CC: sleeve f//u (May 04, 2017) Patient initial contact: Initial weight: 139.253 kg Initial weight in pounds: 307.00 Height: 5 ft 5 in Initial BMI: 51.0 Last weight: 234 Current weight: 103.419 kg Current weight in pounds: 228.00 Current BMI: 37.9 [place] body weight (based on NIH guidelines): 56.699 kg Excess body weight loss: 43.4% The patient is a 47 year-old F who presents for Bariatric Assessment. The patient presents today for sleeve gastrectomy follow-up. She's had some minimal GERD symptoms. She has had no real dysphagia. Past Medical History Past Medical History: Hypertension Additional Past Medical History / Comment(s): HAVING DIFFICULTY WITH LAP BAND ( PER PATIENT) History of Any Multi-Drug Resistant Organisms: None Reported Past Surgical History: Bariatric Surgery, Section, Cholecystectomy Additional Past Surgical History / Comment(s): Lap band Past Anesthesia/Blood Transfusion Reactions: No Reported Reaction Smoking Status: Former smoker - Past Family History Mother Family Medical History: No Reported History Surgical - Exam Vital Signs Pulse Resp BP 93 16 115/70 06/29/17 13:22 06/29/17 13:22 06/29/17 13:22 - General well developed, no distress - Eyes PERRL - Abdomen Abdomen: soft, non tender Bariatric Assessment & Plan Plan: Status post sleeve gastric. Patient is doing fairly well. Her GERD symptoms are minimal. She will follow-up in one month. Bariatric Checklist Checklist: Plan: Checklist: EGD: 1. Hiatal hernia: 2. H. Pylori: HgbA1c: Vitamin D: Smoking: Former smoker Primary care physician referral: DR CAMPOS Psychiatry clearance: Cardiology clearance: Sleep study: Diet journal: VTE risk score: VTE risk level: Rehab needs at discharge:
== END | disposition home or self-care (01) ==
LOC: BARWHC3 12:45
PROVIDERS: ATTEND Surgery
DX: Z48.815 Encounter for surgical aftercare following surgery on the digestive system (principal); K21.9 Gastro-esophageal reflux disease without esophagitis; Z87.891 Personal history of nicotine dependence; Z98.84 Bariatric surgery status
CPT/HCPCS: 99211

== ENCOUNTER → 2017-07-09 | Outpatient (CLI) | payer OTHER ==
--- NOTE | 2017-07-09 08:52 | USB ---
Reason for exam: additional evaluation requested from abnormal screening. US Breast Workup LT Left breast ultrasound demonstrates a 0.6 x 0.3 x 0.6cm solid lesion at 8 o'clock for which a ultrasound core biopsy is recommended. These results were verbally communicated with the patient and result sheet given to the patient on 07/09/17. ASSESSMENT: Suspicious, BI-RAD 4 RECOMMENDATION: Surgical consultation and ultrasound core biopsy of the left breast. Called Dr. Patel with mammographic findings and has scheduled an appointment for the patient for 07/17/17 at 11:[address] Edwards. PRELIMINARY REPORT CALLED AND FAXED TO DR. EDWARDS ON 07/09/17.
--- NOTE | 2017-07-10 10:52 | MM ---
Reason for exam: additional evaluation requested from abnormal screening. Last mammogram was performed less than 1 month ago. Physical Findings: Nurse did not find any significant physical abnormalities on exam. MG 3D Work Up W/Cad LT ML, ML with magnification, and CC with magnification view(s) were taken of the left breast. Prior study comparison: June 26, 2017, bilateral MG 3d screening mammo w/cad. March 12, 2015, bilateral MG screening mammo w CAD. The breast tissue is heterogeneously dense. This may lower the sensitivity of mammography. Finding: There are suspicious coarse heterogeneous, linear arranged, grouped/clustered calcifications in the left breast appear on skin level probable skin calcifications, follow up 6 months. These results were verbally communicated with the patient and result sheet given to the patient on 07/09/17. ASSESSMENT: Incomplete: need additional imaging evaluation, BI-RAD 0 RECOMMENDATION: Ultrasound of the left breast.
== END | disposition home or self-care (01) ==
LOC: RADMAMWWP 07:27
PROVIDERS: ATTEND Family Medicine
DX: R92.8 Other abnormal and inconclusive findings on diagnostic imaging of breast (principal)
CPT/HCPCS: 76642; G0206; G0279

== ENCOUNTER → 2017-08-03 | Outpatient (CLI) | payer OTHER ==
[2017-08-03 13:20] VITALS: BMI 36.3
== END | disposition home or self-care (01) ==
LOC: BARWHC3 11:10
PROVIDERS: ATTEND Surgery
DX: E66.01 Morbid (severe) obesity due to excess calories (principal)
CPT/HCPCS: 97803

== ENCOUNTER → 2017-08-06 | Day surgery (SDC) | payer OTHER ==
[2017-08-06 11:49] VITALS: RESP 16; BMI 35.4
--- NOTE | 2017-08-06 14:11 | USB ---
EXAMINATION TYPE: US biopsy breast VAD LT, MG diagnostic mammo LT wo CAD DATE OF EXAM: 08/06/2017 CLINICAL HISTORY: N63 BREAST LUMP/MASS. TECHNIQUE: Ultrasound guided core biopsy of left breast. COMPARISON: Exams dating back to 03/12/2015 FINDINGS: The procedure of ultrasound guided core biopsy was explained to the patient. Benefits, alternatives, and risks were discussed. An informed consent was then obtained. The patient was placed in supine positioning for imaging and for the procedure. The overlying skin was prepped and draped in usual sterile fashion. 10 cc of lidocaine was used as anesthetic into the skin and subcutaneous tissue up to the 0.6 x 0.3 x 0.6 cm solid mass at the 8:00 position for which ultrasound guided core needle biopsy was recommended. Under ultrasound guidance, a 12-gauge vacuum assisted biopsy gun device was used to obtain 5 core samples. Following this, a ribbon-shaped biopsy marker was placed in the mass and confirmed with postprocedural mammogram demonstrating no marker migration. The patient tolerated the procedure well without any immediate complication. The patient was kept in the radiology department for short stay after the procedure and then discharged home in stable condition. IMPRESSION: Successful, uncomplicated ultrasound guided core biopsy of a 0.6 cm solid mass at the 8:00 position of moderate suspicion, full pathology results to follow. Pathology Results: Benign BREAST, LEFT, CORE BIOPSY: BENIGN BREAST WITH FIBROCYSTIC CHANGES INCLUDING FIBROSIS AND CYSTS. LIMITED SAMPLE, SEE NOTE. Recommendation Follow up mammogram of the left breast in 6 months. GINA
[2017-08-06 14:16] VITALS: BP 116/84; PULSE 72; TEMP 97.9
== END ==
LOC: RADUSWWP 11:12
PROVIDERS: ATTEND Surgery
DX: N60.12 Diffuse cystic mastopathy of left breast (principal)
CPT/HCPCS: 88305; 19083; G0206; A4648; J2001

== ENCOUNTER → 2017-08-10 | Outpatient (CLI) | payer OTHER ==
[2017-08-10 14:37] VITALS: BP 135/70; PULSE 93; RESP 16; TEMP 97.9; BMI 35.4
--- NOTE | 2017-08-10 16:38 | P.HPBAR ---
Bariatric H&P - History & Physicial H&P Date: 08/10/17 History & Physicial: Visit/CC: sleeve follow up Patient initial contact: Initial weight: 139.253 kg Initial weight in pounds: 307.00 Height: 5 ft 5 in Initial BMI: 51.0 Last weight: 218 Current weight: 96.7 kg Current weight in pounds: 213.00 Current BMI: 35.4 [place] body weight (based on NIH guidelines): 56.699 kg Excess body weight loss: 51.6% The patient is a 47 year-old F who presents for Bariatric Assessment. Patient presents today for sleeve history fall. She is doing quite well. She lost another 5 pounds. He's had some minimal GERD. Past Medical History Past Medical History: Hypertension Additional Past Medical History / Comment(s): HAVING DIFFICULTY WITH LAP BAND ( PER PATIENT) History of Any Multi-Drug Resistant Organisms: None Reported Past Surgical History: Bariatric Surgery, Section, Cholecystectomy Additional Past Surgical History / Comment(s): Lap band/gastric sleeve Past Anesthesia/Blood Transfusion Reactions: No Reported Reaction Smoking Status: Former smoker - Past Family History Mother Family Medical History: No Reported History Surgical - Exam Vital Signs Temp Pulse Resp BP 97.9 F 93 16 135/70 08/10/17 14:35 08/10/17 14:35 08/10/17 14:35 08/10/17 14:35 - General well developed, no distress - Eyes PERRL - ENT normal pinna - Neck no masses - Abdomen Abdomen: soft, non tender Bariatric Assessment & Plan Plan: The patient is doing well from her sleeve gastrectomy. Her GERD is minimal will be observed. She'll follow-up in one month. Bariatric Checklist Checklist: Plan: Checklist: EGD: 1. Hiatal hernia: 2. H. Pylori: HgbA1c: Vitamin D: Smoking: Former smoker Primary care physician referral: DR CAMPOS Psychiatry clearance: Cardiology clearance: Sleep study: Diet journal: VTE risk score: VTE risk level: Rehab needs at discharge:
== END | disposition home or self-care (01) ==
LOC: BARWHC3 13:49
PROVIDERS: ATTEND Surgery
DX: Z48.815 Encounter for surgical aftercare following surgery on the digestive system (principal); K21.9 Gastro-esophageal reflux disease without esophagitis; E66.01 Morbid (severe) obesity due to excess calories; Z68.35 Body mass index [BMI] 35.0-35.9, adult; Z87.891 Personal history of nicotine dependence; Z98.84 Bariatric surgery status
CPT/HCPCS: 99211

== ENCOUNTER → 2017-11-02 | Outpatient (CLI) | payer OTHER ==
[2017-11-02 14:09] VITALS: BP 139/77; PULSE 89; RESP 16; TEMP 98; BMI 34.7
[2017-11-02 15:30] LABS: HCT 31.7 % (34.0-46.0); HGB 9.9 gm/dL (11.4-16.0); Hypochromasia Slight; MCH 24.6 pg (25.0-35.0); MCHC 31.1 g/dL (31.0-37.0); MCV 79.2 fL (80.0-100.0); Mean Platelet Volume 7.2; Platelet Count 401 k/uL (150-450); RDW 13.1 % (11.5-15.5); WBC 5.8 k/uL (3.8-10.6)
[2017-11-02 15:49] LABS: ALT 30 U/L (9-52); AST 24 U/L (14-36); Albumin 3.9 g/dL (3.5-5.0); Alkaline Phosphatase 71 U/L (38-126); Anion Gap 8 mmol/L; Blood Urea Nitrogen 14 mg/dL (7-17); Calcium 9.2 mg/dL (8.4-10.2); Carbon Dioxide 32 mmol/L (22-30); Chloride 99 mmol/L (98-107); Glucose 140 mg/dL (74-99); Magnesium 1.8 mg/dL (1.6-2.3); Potassium 3.8 mmol/L (3.5-5.1); Sodium 139 mmol/L (137-145); Total Bilirubin 0.5 mg/dL (0.2-1.3); Total Protein 7.2 g/dL (6.3-8.2)
--- NOTE | 2017-11-02 16:34 | P.HPBAR ---
Bariatric H&P - History & Physicial H&P Date: 11/02/17 History & Physicial: Visit/CC: sleeve follow-up Patient initial contact: Initial weight: 139.253 kg Initial weight in pounds: 307.00 Height: 5 ft 5 in Initial BMI: 51.0 Last weight: Current weight: 94.829 kg Current weight in pounds: 209.06 Current BMI: 34.7 [place] body weight (based on NIH guidelines): 56.699 kg Excess body weight loss: 53.8% The patient is a 47 year-old F who presents for Bariatric Assessment. Patient presents today for sleeve gastric a fall. She is also another 4 pounds her last visit. She has mild GERD. Past Medical History Past Medical History: Hypertension Additional Past Medical History / Comment(s): HAVING DIFFICULTY WITH LAP BAND ( PER PATIENT) History of Any Multi-Drug Resistant Organisms: None Reported Past Surgical History: Bariatric Surgery, Section, Cholecystectomy Additional Past Surgical History / Comment(s): Lap band/gastric sleeve Past Anesthesia/Blood Transfusion Reactions: No Reported Reaction Smoking Status: Former smoker - Past Family History Mother Family Medical History: No Reported History Surgical - Exam Vital Signs Temp Pulse Resp BP 98.0 F 89 16 139/77 11/02/17 14:06 11/02/17 14:06 11/02/17 14:06 11/02/17 14:06 - General well developed, no distress - Eyes PERRL - Abdomen Abdomen: soft, non tender Results - Labs 11/02/17 15:01 11/02/17 15:01 Abnormal Lab Results - Last 24 Hours (Table) 11/02/17 11/02/17 Range/Units 15:01 15:01 Hgb 9.9 L (11.4-16.0) gm/dL Hct 31.7 L (34.0-46.0) % MCV 79.2 L (80.0-100.0) fL MCH 24.6 L (25.0-35.0) pg Carbon Dioxide 32 H (22-30) mmol/L Glucose 140 H (74-99) mg/dL Diabetes panel 11/02/17 Range/Units 15:01 Sodium 139 (137-145) mmol/L Potassium 3.8 (3.5-5.1) mmol/L Chloride 99 (98-107) mmol/L Carbon Dioxide 32 H (22-30) mmol/L BUN 14 (7-17) mg/dL Creatinine 0.70 (0.52-1.04) mg/dL Glucose 140 H (74-99) mg/dL Calcium 9.2 (8.4-10.2) mg/dL AST 24 (14-36) U/L ALT 30 (9-52) U/L Alkaline Phosphatase 71 (38-126) U/L Total Protein 7.2 (6.3-8.2) g/dL Albumin 3.9 (3.5-5.0) g/dL Thyroid panel 11/02/17 Range/Units 15:01 TSH 1.250 (0.465-4.680) mIU/L Calcium panel 11/02/17 Range/Units 15:01 Calcium 9.2 (8.4-10.2) mg/dL Albumin 3.9 (3.5-5.0) g/dL Pituitary panel 11/02/17 Range/Units 15:01 Sodium 139 (137-145) mmol/L Potassium 3.8 (3.5-5.1) mmol/L Chloride 99 (98-107) mmol/L Carbon Dioxide 32 H (22-30) mmol/L BUN 14 (7-17) mg/dL Creatinine 0.70 (0.52-1.04) mg/dL Glucose 140 H (74-99) mg/dL Calcium 9.2 (8.4-10.2) mg/dL TSH 1.250 (0.465-4.680) mIU/L Adrenal panel 11/02/17 Range/Units 15:01 Sodium 139 (137-145) mmol/L Potassium 3.8 (3.5-5.1) mmol/L Chloride 99 (98-107) mmol/L Carbon Dioxide 32 H (22-30) mmol/L BUN 14 (7-17) mg/dL Creatinine 0.70 (0.52-1.04) mg/dL Glucose 140 H (74-99) mg/dL Calcium 9.2 (8.4-10.2) mg/dL Total Bilirubin 0.5 (0.2-1.3) mg/dL AST 24 (14-36) U/L ALT 30 (9-52) U/L Alkaline Phosphatase 71 (38-126) U/L Total Protein 7.2 (6.3-8.2) g/dL Albumin 3.9 (3.5-5.0) g/dL Bariatric Assessment & Plan Plan: Has mostly yesterday. Patient is doing well. Her GERD symptoms are minimal and observed. She'll follow-up in 4 weeks. Bariatric Checklist Checklist: Plan: Checklist: EGD: 1. Hiatal hernia: 2. H. Pylori: HgbA1c: Vitamin D: Smoking: Former smoker Primary care physician referral: DR CAMPOS Psychiatry clearance: Cardiology clearance: Sleep study: Diet journal: VTE risk score: VTE risk level: Rehab needs at discharge:
[2017-11-02 19:05] LABS: Iron Saturation 10.24 (12.00-45.00)
[2017-11-02 20:37] LABS: Vitamin D 25 Hydroxy 11.4 ng/mL (30.0-100.0)
[2017-11-03 11:19] LABS: Zinc, Serum 71 ug/dL (60-130)
[2017-11-04 05:19] LABS: Vitamin B1 39 ug/L (38-122)
[2017-11-04 07:36] LABS: Vitamin A 43 ug/dL (38-106)
[2017-11-05 16:59] LABS: Selenium 133 mcg/L (63-160)
== END | disposition home or self-care (01) ==
LOC: BARWHC3 13:58
PROVIDERS: ATTEND Surgery
DX: Z48.815 Encounter for surgical aftercare following surgery on the digestive system (principal); K95.09 Other complications of gastric band procedure; K21.9 Gastro-esophageal reflux disease without esophagitis; E66.01 Morbid (severe) obesity due to excess calories; D50.8 Other iron deficiency anemias; E44.0 Moderate protein-calorie malnutrition; K74.1 Hepatic sclerosis; N19 Unspecified kidney failure; K50.90 Crohn's disease, unspecified, without complications; Z98.84 Bariatric surgery status; Z90.49 Acquired absence of other specified parts of digestive tract; Z87.891 Personal history of nicotine dependence; Z68.43 Body mass index [BMI] 50.0-59.9, adult
CPT/HCPCS: 36415; 80053; 82306; 82525; 82607; 82728; 83540; 83550; 83735; 84134; 84255; 84425; 84443; 84590; 84630; 85027; 97803; 99211

== ENCOUNTER → 2018-02-05 | Outpatient (CLI) | payer OTHER ==
--- NOTE | 2018-02-05 08:47 | MM ---
Reason for exam: follow-up at short interval from prior study. Last mammogram was performed 6 months ago. History: Benign US biopsy breast VAD LT of the left breast, August 06, 2017. Physical Findings: Nurse did not find any significant physical abnormalities on exam. MG 3D Diag Mammo W/Cad LT CC, MLO, and XCCL view(s) were taken of the left breast. Prior study comparison: August 06, 2017, left breast MG diagnostic mammo LT wo CAD. July 09, 2017, left breast MG 3d work up w/cad LT. The breast tissue is heterogeneously dense. This may lower the sensitivity of mammography. No new abnormality. Left biopsy marker with associated biopsy proven benign mass in the lower inner quadrant at anterior depth. These results were verbally communicated with the patient and result sheet given to the patient on 02/05/18. ASSESSMENT: Benign, BI-RAD 2 RECOMMENDATION: Return to routine screening mammogram schedule for both breasts. Back on schedule.
== END | disposition home or self-care (01) ==
LOC: RADMAMWWP 07:39
PROVIDERS: ATTEND Surgery
DX: R92.8 Other abnormal and inconclusive findings on diagnostic imaging of breast (principal)
CPT/HCPCS: 77061; 77065

== ENCOUNTER → 2021-03-08 | Outpatient (CLI) | payer OTHER ==
--- NOTE | 2021-03-12 09:16 | MM ---
Reason for exam: screening (asymptomatic). Last mammogram was performed 3 years and 1 month ago. History: Benign US biopsy breast VAD LT of the left breast, August 06, 2017. Physical Findings: A clinical breast exam by your physician is recommended on an annual basis and results should be correlated with mammographic findings. MG 3D Screening Mammo W/Cad Bilateral CC and MLO view(s) were taken. Prior study comparison: February 05, 2018, left breast MG 3d diag mammo w/cad LT. August 06, 2017, left breast MG diagnostic mammo LT wo CAD. The breast tissue is heterogeneously dense. This may lower the sensitivity of mammography. Previous mammotome biopsy in the left breast. Some skin calcifications anterior upper outer quadrant left breast. No significant changes when compared with prior studies. ASSESSMENT: Negative, BI-RAD 1 RECOMMENDATION: Routine screening mammogram of both breasts in 1 year.
== END | disposition home or self-care (01) ==
LOC: RADMAMWWP 07:01
PROVIDERS: ATTEND Family Medicine
DX: Z12.31 Encounter for screening mammogram for malignant neoplasm of breast (principal)
CPT/HCPCS: 77063; 77067

== ENCOUNTER → 2022-04-24 | Outpatient (CLI) | payer OTHER ==
--- NOTE | 2022-04-25 08:13 | MM ---
Reason for Exam: Screening (asymptomatic). Last mammogram was performed 1 year(s) and 2 month(s) ago. Patient History: Menarche at age 12. First Full-Term at age 17. 08/06/2017, Benign Core Biopsy on the left side. Maternal aunt had ovarian cancer, age 71. Last menstrual period: 09/04/2021 Risk Values: Ale 5 year model risk: 0.9%. NCI Lifetime model risk: 7.5%. Prior Study Comparison: 08/06/2017 Left Diagnostic Mammogram, [facility]. 02/05/2018 Left Diagnostic Mammogram, [facility]. 03/08/2021 Bilateral Screening Mammogram, [facility]. Tissue Density: There are scattered fibroglandular densities. Findings: Analyzed By CAD. There is a biopsy clip within the left breast. There is no suspicious group of microcalcifications or new suspicious mass in either breast. Overall Assessment: Negative, BI-RAD 1 Management: Screening Mammogram of both breasts in 1 year. A clinical breast exam by your physician is recommended on an annual basis and results should be correlated with mammographic findings. Electronically signed and approved by: Eloy Hardy DO
== END | disposition home or self-care (01) ==
LOC: RADMAMWWP 15:55
PROVIDERS: ATTEND Family Medicine
DX: Z12.31 Encounter for screening mammogram for malignant neoplasm of breast (principal); Z80.3 Family history of malignant neoplasm of breast
CPT/HCPCS: 77063; 77067

== ENCOUNTER → 2023-05-22 | Outpatient (CLI) | payer OTHER ==
--- NOTE | 2023-05-26 22:58 | MM ---
Reason for Exam: Screening (asymptomatic). Last mammogram was performed 1 year(s) and 1 month(s) ago. Patient History: Menarche at age 12. First Full-Term at age 17. Postmenopausal. 08/06/2017, Benign Core Biopsy on the left side. Maternal aunt had ovarian cancer, age 71. Risk Values: Ale 5 year model risk: 0.9%. NCI Lifetime model risk: 7.4%. Prior Study Comparison: 02/05/2018 Left Diagnostic Mammogram, [facility]. 03/08/2021 Bilateral Screening Mammogram, [facility]. 04/24/2022 Bilateral MG 3D screening mammo w/cad, [facility]. Tissue Density: The breast tissue is heterogeneously dense. This may lower the sensitivity of mammography. Findings: Analyzed By CAD. Microclip in the left breast from prior biopsy. Unchanged global asymmetry left upper outer quadrant. There is no suspicious group of microcalcifications or new suspicious mass in either breast. Overall Assessment: Benign, BI-RAD 2 Management: Screening Mammogram of both breasts in 1 year. . Patient should continue monthly self-breast exams. A clinical breast exam by your physician is recommended on an annual basis. This exam should not preclude additional follow-up of suspicious palpable abnormalities. Note on Ale scores and lifetime risk: 1. A Ale score greater than 3% is considered moderate risk. If this is the case, consider specialist referral to assess eligibility for a risk reducing agent. 2. If overall lifetime risk for the development of breast cancer is 20% or higher, the patient may qualify for future screening with alternating mammogram and breast MRI. Electronically signed and approved by: Jhon Jefferson M.D. Radiologist
== END | disposition home or self-care (01) ==
LOC: RADMAMWWP 15:10
PROVIDERS: ATTEND Family Medicine
DX: Z12.31 Encounter for screening mammogram for malignant neoplasm of breast (principal); Z78.0 Asymptomatic menopausal state; Z80.3 Family history of malignant neoplasm of breast
CPT/HCPCS: 77063; 77067

== ENCOUNTER → 2023-07-03 | Outpatient (CLI) | payer OTHER ==
--- NOTE | 2023-07-03 14:10 | XR ---
EXAMINATION TYPE: XR knee complete LT DATE OF EXAM: 07/03/2023 CLINICAL HISTORY: pain TECHNIQUE: Three views of the left knee are obtained. COMPARISON: None. FINDINGS: There is no acute fracture/dislocation. The tri-compartment joint spaces appear moderatel y narrowed medial tibiofemoral joint space and patellofemoral joint space. Small to moderate suprapat ellar joint effusion. The overlying soft tissue appears unremarkable. IMPRESSION: There is no acute fracture or dislocation ICD 10 NO FRACTURE, INITIAL EVALUATION
--- NOTE | 2023-07-03 14:12 | XR ---
EXAMINATION TYPE: XR lumbosacral spine min 4V DATE OF EXAM: 07/03/2023 CLINICAL HISTORY: pain COMPARISON: NONE TECHNIQUE: Frontal, lateral, and oblique images of the lumbar spine are obtained. FINDINGS: There are 5 lumbar type vertebral bodies identified. The lumbar spine shows satisfactory alignment without evidence of acute fracture or dislocation. Vertebral body heights are within normal limits. Severe degenerative narrowing L4-5 and L5-S1. Moderate to severe facet joint arthropathy. Sc attered ventral spondylosis. The overlying soft tissue appears unremarkable. IMPRESSION: No acute fracture or dislocation is seen in the lumbar spine.ICD 10 NO FRACTURE, INITIAL EVALUATION
== END | disposition home or self-care (01) ==
LOC: RADXRMAIN 13:35
PROVIDERS: ATTEND Emergency Medicine
DX: S83.92XA Sprain of unspecified site of left knee, initial encounter (principal); S33.5XXA Sprain of ligaments of lumbar spine, initial encounter; X58.XXXA Exposure to other specified factors, initial encounter
CPT/HCPCS: 72110

== ENCOUNTER → 2023-08-05 | Outpatient (CLI) | payer OTHER ==
--- NOTE | 2023-08-05 16:08 | XR ---
EXAMINATION TYPE: XR knee complete LT DATE OF EXAM: 08/05/2023 COMPARISON: 07/03/2023 HISTORY: 53-year-old female S83.92XD PAIN IN LEFT KNEE TECHNIQUE: 3 views FINDINGS: Moderate degenerative change medial compartment. Mild degenerative changes lateral and patellofemoral compartments. There is a moderate knee joint effusion noted. No acute fracture, subluxation, or disl ocation seen. IMPRESSION: 1. Tricompartmental osteoarthrosis, moderate in the medial compartment. 2. There is a moderate knee joint effusion which is nonspecific. If concern for internal derangement, MRI can be performed. 3. No acute osseous abnormality seen.
== END | disposition home or self-care (01) ==
LOC: RADXRMAIN 15:00
PROVIDERS: ATTEND Emergency Medicine
DX: M17.12 Unilateral primary osteoarthritis, left knee (principal)

== ENCOUNTER → 2023-08-29 | Outpatient (CLI) | payer OTHER ==
--- NOTE | 2023-08-29 15:56 | MR ---
EXAMINATION TYPE: MR knee LT wo con DATE OF EXAM: 08/29/2023 COMPARISON: None HISTORY: Lt knee pain, twisting injury TECHNIQUE: Multiplanar, multisequence imaging of the left knee is performed without IV contrast. FINDINGS: There is no bone contusion or fracture. There is a large joint effusion. There is a complete tear of the anterior cruciate ligament. The posterior cruciate ligament is intact . There is mild strain of the medial collateral ligament. The lateral collateral ligament is intact There is a large horizontal tear of the body and posterior horn of the medial meniscus and medial men iscus is extruded displaced medially suggesting the presence of a root attachment. The lateral menisc us is intact. There is marked osteoarthritic change of the medial compartment of the knee where there is marked hyp ertrophic spurring and mild subchondral changes with thinning of the articular cartilage. Mild osteoa rthritic changes are identified in the lateral compartment the knee with mild hypertrophic spurring b ut intact articular cartilages. There is moderate osteoarthritic change of the patellofemoral compart ment where there is mild thinning of the articular cartilages and marginal hypertrophic spurring.. The quadriceps and patellar tendons are intact. IMPRESSION: 1. Large joint effusion. 2. Tear of the anterior cruciate ligament. 3. Tear and medial displacement of the medial meniscus as described. 4. Mild strain of the medial collateral ligament 5. tricompartment osteoarthritic changes described above.
== END | disposition home or self-care (01) ==
LOC: RADMRIMAIN 10:59
PROVIDERS: ATTEND Emergency Medicine
DX: S83.242A Other tear of medial meniscus, current injury, left knee, initial encounter (principal); S33.5XXD Sprain of ligaments of lumbar spine, subsequent encounter; M25.462 Effusion, left knee; M17.12 Unilateral primary osteoarthritis, left knee

== ENCOUNTER → 2023-09-16 | Outpatient (CLI) | payer OTHER ==
[2023-09-17 02:21] LABS: Basophils # (A) 0.05 X 10*3/uL (0.00-0.10); Basophils % (A) 0.8 %; Eosinophils # (A) 0.14 X 10*3/uL (0.04-0.35); Eosinophils % (A) 2.2 %; HCT 39.6 % (37.2-46.3); HGB 13.4 g/dL (12.0-15.0); Lymphocytes # (A) 2.35 X 10*3/uL (0.90-5.00); Lymphocytes % (A) 36.3 %; MCH 30.1 pg (27.0-32.0); MCHC 33.8 g/dL (32.0-37.0); Mean Platelet Volume 9.5 FL (9.5-12.2); Monocytes # (A) 0.48 X 10*3/uL (0.20-1.00); Monocytes % (A) 7.4 %; NRBC Per 100 WBC 0 X 10*3/uL (0.00-0.01); Neutrophils # (A) 3.44 X 10*3/uL (1.80-7.70); Neutrophils % (A) 53.1 %; Platelet Count 322 X 10*3/uL (140-440); RBC 4.45 X 10*6/uL (4.10-5.20); RDW 11.8 % (11.5-14.5); WBC 6.47 X 10*3/uL (4.50-10.00)
[2023-09-17 02:44] LABS: Anion Gap 13.2 mmol/L (4.00-12.00); Carbon Dioxide 26.8 mmol/L (21.6-31.8); Potassium 3.5 mmol/L (3.5-5.5)
== END | disposition home or self-care (01) ==
LOC: LABPAT 14:50
PROVIDERS: ATTEND Orthopaedic Surgery
DX: Z01.818 Encounter for other preprocedural examination (principal); M23.92 Unspecified internal derangement of left knee
CPT/HCPCS: 80051; 85025; 93005

== ENCOUNTER 2023-10-01 09:38 | Day surgery (SDC) | payer OTHER ==
--- NOTE | 2023-10-01 03:21 | HP ---
HISTORY AND PHYSICAL DATE OF SURGERY: 10/01/2023. HISTORY OF PRESENT ILLNESS: Lila Post is a 53-year-old patient, seen with progressive left knee pain. We discussed options for treatment. The patient elected to proceed with left knee arthroscopy. Consent regarding procedure was obtained. PAST MEDICAL HISTORY: Hypertension, hyperlipidemia. PAST SURGICAL HISTORY: Cholecystectomy, section. DAILY MEDICATIONS: 1. Atorvastatin. 2. Lisinopril. 3. Trulicity. 4. Tylenol. ALLERGIES: Penicillin. SOCIAL HISTORY: The patient denies tobacco use. PHYSICAL EVALUATION OF THE LEFT KNEE: Range of motion is negative 3 to 95 degrees. Mild effusion. Tenderness, medial joint line. Positive medial Rc's. Ligaments stable. Hip rotation without pain. Distal neurovascular exam is intact. IMAGING STUDIES: Radiographs of left knee revealed moderate osteoarthritis. MRI of left knee revealed medial meniscal tear, ACL tear, osteoarthritis, and large effusion. IMPRESSION: 1. Internal derangement of left knee with medial meniscal tear. 2. Left knee anterior cruciate ligament tear. 3. Left knee osteoarthritis. 4. Hypertension. 5. Hyperlipidemia. PLAN: Left knee arthroscopy with partial medial meniscectomy and debridement. MMODL / IJN: [id number] /
[~2023-10-01 09:38] MED LIST changes: -CLINDAMYCIN 900 MG in DEXTROSE 5% IN WATER 50 ML IVPB ONE; -DEXAMETHASONE SOD PHOSPHATE 10 MG/ML 1 ML VIAL IV ONE; +DEXAMETHASONE SOD PHOSPHATE 4 MG/ML 1 ML VIAL IV ONE; -GENTAMICIN 400 MG in SODIUM CHLORIDE 0.9% 100 ML IVPB ONE; +HYDROmorphone 0.5 MG/0.5 ML SYRINGE IVP PRN; -HYDROmorphone 1 MG/ML 1 ML SYRINGE IVP PRN; +LACTATED RINGERS 1,000 ML IV SCH; +LIDOCAINE 1% (10MG/ML) FOR IV START INTRADERMA PRN; +MIDAZOLAM 2 MG/2 ML VIAL IV PRN
[2023-10-01 10:22] LABS: Glucose,Whole Blood 174 mg/dL (70-110)
[2023-10-01] MEDS ORDERED: SCOPOLAMINE 1 MG/72 HR PATCH TRANSDERM ONE (10:30)
[2023-10-01] MEDS ORDERED: PROPOFOL 10 MG/ML 20 ML VIAL IV ONE (11:41)
[2023-10-01] MEDS ORDERED: SUCCINYLCHOLINE CHLORIDE 200 MG/10 ML VIAL IV ONE (11:41)
[2023-10-01] MEDS ORDERED: fentaNYL (PF) 50 MCG/ML 2 ML AMP ONE (11:41)
[2023-10-01] MEDS ORDERED: LIDOCAINE 1% INJ 10MG/ML (20 ML MDV) ONE (11:41)
[2023-10-01] MEDS ORDERED: MIDAZOLAM 2 MG/2 ML VIAL ONE (11:41)
[2023-10-01] MEDS ORDERED: BUPIVACAINE (PF) 0.25% 30 ML VIAL SQ ONE ×2 (12:11→12:27)
--- NOTE | 2023-10-01 12:45 | P.OP ---
Date of Procedure: 10/01/23 Preoperative Diagnosis: Internal derangement left knee Postoperative Diagnosis: 1. Tear medial meniscus left knee 2. Grade 4 chondromalacia medial femoral condyle left knee 3. Grade 4 chondromalacia femoral sulcus left knee 4. Reactive synovitis medial, lateral and suprapatellar compartments left knee Procedure(s) Performed: 1. Arthroscopic partial medial meniscectomy left knee 2. Arthroscopic microfracture medial femoral condyle left knee 3. Arthroscopic microfracture femoral sulcus left knee 4. Arthroscopic partial synovectomy medial, lateral and suprapatellar compartments left knee Anesthesia: GETA, local Surgeon: Nirav Gonzalez Estimated Blood Loss (ml): 7 Pathology: none sent Condition: stable Disposition: PACU Indications for Procedure: 53-year-old patient seen with left knee pain and history of meniscal tear. We discussed options for treatment. She elected to proceed with arthroscopy. Consent was obtained. Operative Findings: See description of procedure Description of Procedure: Patient was taken to the operative suite. Patient underwent a general anesthetic by the department of anesthesia. Patient was given preoperative antibiotics. The left lower extremity was placed in a well-padded arthroscopic leg lechuga. The left leg was prepped and draped in the normal sterile orthopedic fashion. A lateral parapatellar and suprapatellar incision was made. Trochars were inserted. Arthroscopy was initiated. Suprapatellar pouch revealed diffuse thick reactive synovitis. The patellofemoral joint appeared to articulate congruently. There was grade 2 chondromalacia of the patella and g rade 3/4 chondromalacia the femoral sulcus with osteochondral flap tears present at the femoral sulcus. The scope was guided into the medial gutter. No loose bodies or plica were identified. The scope was then guided into the medial compartment. A medial parapatellar incision was made. Trocar inserted followed by probe. There was a radial tear involving the medial meniscus. There was grade 4 chondromalacia of the femoral condyle and tibial plateau with large areas of exposed bone on both size. There was thick reactive synovitis anteriorly. I performed a partial medial meniscectomy getting down to stable meniscal tissue. I performed a partial synovectomy decompressing the reactive synovitis. I now introduced a microfracture awl and performed multiple microfractures to the area of exposed bone along the medial femoral condyle penetrating the bone at 6 different areas with resultant bleeding at the microfracture sites. The residual meniscus was probed and was found to be stabl e. There was good decompression of the synovitis. Scope and probe were then guided into the intercondylar notch. Cruciates were identified, probed and found to be stable. The scope and probe were then guided into lateral compartment. Lateral meniscus was found to be stable. There were some grade 1/2 chondromalacia changes of the lateral tibial plateau with no tears. The lateral femoral condyle was unremarkable. I introduced a motorized shaver and I performed a partial synovectomy. Shaver was now removed. There was good decompression of the synovitis. The scope was in guided back into the suprapatellar compartment. I used a motorized shaver and performed a chondroplasty of the femoral sulcus getting down to stable osteochondral tissue. I now performed a partial synovectomy. I did note a very exposed bone of the central area of the femoral sulcus. I introduced a microfracture awl performed a microfracture to that area penetrating the bone with resultant bleeding at the microfracture site. The residual osteochondral surface was probed and was found to be stable. There was good decompression of the synovitis. I now took one more look around the entire knee, no residual debris. Instruments were now removed from the joint. The joint was infiltrated with .25% Marcaine. Steri- Strips were applied to the portal sites. Sterile dressings were applied. The patient was placed into a EDISON hose. No tourniquet was utilized. The patient was awakened, transferred to a bed and taken to recovery stable satisfactory condition.
[2023-10-01 13:00] VITALS: TEMP 97.3
[2023-10-01 13:28] VITALS: RESP 20
[2023-10-01 13:55] VITALS: BP 121/80; PULSE 93
== END 2023-10-01 13:50 | disposition home or self-care (01) ==
LOC: OR 09:38
PROVIDERS: ATTEND Orthopaedic Surgery
DX: S83.242A Other tear of medial meniscus, current injury, left knee, initial encounter (principal); S83.512A Sprain of anterior cruciate ligament of left knee, initial encounter; M22.42 Chondromalacia patellae, left knee; M65.162 Other infective (teno)synovitis, left knee; I10 Essential (primary) hypertension; M17.12 Unilateral primary osteoarthritis, left knee; E78.5 Hyperlipidemia, unspecified; F41.9 Anxiety disorder, unspecified; E11.9 Type 2 diabetes mellitus without complications; F32.A Depression, unspecified; Z90.49 Acquired absence of other specified parts of digestive tract; Z98.890 Other specified postprocedural states; Z79.85 Long-term (current) use of injectable non-insulin antidiabetic drugs; Z79.899 Other long term (current) drug therapy; Z88.0 Allergy status to penicillin
CPT/HCPCS: 29881; 29879; J2250; J0330; J1100; J0690; J2405; J2001; J3010; J2704; J0665

== ENCOUNTER 2024-04-10 00:26 | Emergency (ER) | payer OTHER ==
[2024-04-10] MEDS: OXYMETAZOLINE 0.05% NASL SPRAY 1 SPRAY BOTTLE NASAL STA (01:11)
--- NOTE | 2024-04-10 01:20 | ED ---
ENT HPI - General Chief complaint: ENT Stated complaint: Nose Bleed Time Seen by Provider: 04/10/24 00:53 Source: patient, RN notes reviewed Mode of arrival: ambulatory Limitations: no limitations - History of Present Illness Initial comments: This is a 53-year-old female who presents to the emergency department for a nosebleed. States that it started a few hours prior to arrival after blowing her nose. She has since been unable to get the bleeding to stop. Bleeding is coming out of both nostrils. Not taking any blood thinners. States that she d oes have problems with allergies. She was taking cetirizine, however this makes her drowsy and she has thus only been taking it when needed. MD complaint: epistaxis - Related Data Home Medications Medication Instructions Recorded Confirmed Lisinopril-Hctz 20-25 mg 2 tab PO QAM 07/14/15 09/28/23 [Zestoretic 20-25] PARoxetine [Paxil] 20 mg PO QAM 07/14/15 09/28/23 Ferrous Sulfate [Iron] 325 mg PO DAILY 07/31/17 09/28/23 Multivitamins, Thera [Multivitamin 1 each PO DAILY 07/31/17 09/28/23 (formulary)] Atorvastatin [Lipitor] 20 mg PO HS 09/28/23 09/28/23 Dulaglutide [Trulicity] 1.5 mg SQ TU 09/28/23 09/28/23 Ibuprofen [Motrin Ib] 200 mg PO DIRECTED PRN 09/28/23 09/28/23 Potassium Chloride ER [K-Dur 10] 10 meq PO DAILY 09/28/23 09/28/23 Previous Rx's Medication Instructions Recorded HYDROcodone/APAP 5-325MG [[place] 1 tab PO Q6HR PRN #18 tab 10/01/23 5-325] Allergies Allergy/AdvReac Type Severity Reaction Status Date / Time Penicillins Allergy Rash/Hives Verified 04/10/24 00:46 Review of Systems ROS Statement: Those systems with pertinent positive or pertinent negative responses have been documented in the HPI. ROS Other: All systems not noted in ROS Statement are negative. Past Medical History Past Medical History: Diabetes Mellitus, Hypertension Additional Past Medical History / Comment(s): HAVING DIFFICULTY WITH LAP BAND (PER PATIENT), pre diabetic History of Any Multi-Drug Resistant Organisms: None Reported Past Surgical History: Section, Cholecystectomy, Orthopedic Surgery Additional Past Surgical History / Comment(s): Lap band/gastric sleeve, left knee procedure. Past Anesthesia/Blood Transfusion Reactions: No Reported Reaction Past Psychological History: Anxiety, Depression Past Alcohol Use History: Occasional Past Drug Use History: None Reported - Past Family History Mother Family Medical History: COPD, Coronary Artery Disease (CAD), Diabetes Mellitus, Myocardial Infarction (MT) General Exam Limitations: no limitations General appearance: alert, in no apparent distress Head exam: Present: atraumatic, normocephalic, normal inspection ENT exam: Present: other (Active bleeding from both nares) Respiratory exam: Present: normal lung sounds bilaterally. Absent: respiratory distress, wheezes, rales, rhonchi, stridor Cardiovascular Exam: Present: regular rate, normal rhythm, normal heart sounds. Absent: systolic murmur, diastolic murmur, rubs, gallop, clicks Neurological exam: Present: alert, oriented X3, CN II-XII intact Psychiatric exam: Present: normal affect, normal mood Skin exam: Present: warm, dry, intact, normal color. Absent: rash Course Vital Signs 04/10/24 04/10/24 00:47 03:26 Temperature 97.6 F 98.4 F Pulse Rate 107 H 101 H Respiratory 20 21 Rate Blood Pressure 128/80 109/71 O2 Sat by Pulse 99 97 Oximetry Medical Decision Making - Medical Decision Making This is a 53 year old female who presents to the emergency department for a nosebleed. Was pt. sent in by a medical professional or institution? @ -No Did you speak to anyone other than the patient for history? @ -No Did you review nursing and triage notes? @ -Yes, and I agree, it is accurate with regards to the patient's symptoms. Were old charts reviewed? @ -No Differential Diagnosis? @ -Differential Epistaxis: Trauma, coagulopathy, allergic rhinitis, tumor, this is not meant to be an all- inclusive list. EKG interpreted by me (3pts min.)? @ -Not obtained X-rays interpreted by me (1pt min.)? @ -Not obtained CT interpreted by me (1pt min.)? @ -Not obtained U/S interpreted by me (1pt. min.)? @ -Not obtained What testing was considered but not performed? (CT, X-rays, U/S, labs)? Why? @ -None What meds were considered but not given? Why? @ -None Did you discuss the management of the patient with other professionals? @ -No Did you reconcile home meds? @ -No Was smoking cessation discussed for >3mins.? @ -No Was critical care preformed (if so, how long)? @ -No Were there social determinants of health that impacted care today? How? (Homelessness, low income, unemployed, alcoholism, drug addiction, transportation, low edu. Level, literacy, decrease access to med. care, snf, rehab)? @ -No Was there de-escalation of care discussed even if they declined? (Discuss DNR or withdrawal of care, Hospice)? @ -No What co-morbidities impacted this encounter? (DM, HTN, Smoking, COPD, CAD, Cancer, CVA, Hep., AIDS, mental health diagnosis, sleep apnea, morbid obesity)? @ -None Was patient admitted / discharged? @ -Discharged. She had active bleeding from both nares on exam. We initially used Afrin nasal spray and clamped the nose for about 20 minutes. The bleeding did resolve and the patient was about to be discharged, however bleeding then resumed. Phenylephrine nasal spray was then applied and her nose was clamped for an additional 20 minutes. This was removed and the patient was monitored for about 40 minutes without any return of bleeding. She was sent home with both the Afrin and phenylephrine nasal spray as well as nasal clamps and instruction on how to use them if the bleeding returns. Advised saline nasal spray to moisten the nasal passages and reduce the risk of recurrence. We also discussed nondrowsy antihistamines such as Sandra and Claritin to help with her allergy symptoms. Undiagnosed new problem with uncertain prognosis? @ -None Drug Therapy requiring intensive monitoring for toxicity (Heparin, Nitro, Insulin, Cardizem)? @ -None Were any procedures done? @ -None Diagnosis/symptom? @ -Epistaxis Acute, or Chronic, or Acute on Chronic? @ -Acute Uncomplicated (without systemic symptoms) or Complicated (systemic symptoms)? @ -Uncomplicated Side effects of treatment? @ -None Exacerbation, Progression, or Severe Exacerbation] @ -Not applicable Poses a threat to life or bodily function? @ -No Return precautions reviewed in depth, the patient is instructed to return to the emergency department with any new, worsening, or concerning symptoms. Patient verbalized understanding. This case was discussed in detail with the attending ED physician, Dr. Dias. Presentation, findings, and treatment plan discussed in detail as well. Disposition Clinical Impression: Epistaxis Disposition: HOME SELF-CARE Instructions (If sedation given, give patient instructions): Nosebleed (ED) Additional Instructions: Return to the emergency department with any new, worsening, or concerning symptoms. If the bleeding returns, apply 2 sprays of the Afrin nasal spray in each nostril and clamp the nose for about 20 minutes. If the bleeding persists, you can repeat this process. Use saline nasal spray a few times each day to moisten the nasal passages and reduce the risk of recurrence. Instead of the cetirizine, try taking [id number] Sandra or Claritin for the allergies, as they tend to be less drowsy. Follow up with your primary care provider in 1- 2 days. Is patient prescribed a controlled substance at d/c from ED?: No Referrals: Herber Segura MD [Primary Care Provider] - 1-2 days Time of Disposition: 14:09
[2024-04-10] MEDS: PHENYLEPHRINE 0.25% NASAL SPRA 1 SPRAY/ML NASAL STA (02:44)
[2024-04-10 03:29] VITALS: BP 109/71; PULSE 101; RESP 21; TEMP 98.4
== END 2024-04-10 03:25 | disposition home or self-care (01) ==
LOC: EC 00:26
DX: R04.0 Epistaxis (principal); Z88.0 Allergy status to penicillin
CPT/HCPCS: 99283

== ENCOUNTER → 2024-05-24 | Outpatient (CLI) | payer OTHER ==
--- NOTE | 2024-05-29 11:35 | MM ---
Reason for Exam: Screening (asymptomatic). Last screening mammogram was performed 12 month(s) ago. Patient History: Menarche at age 12. First Full-Term at age 17. Postmenopausal. 08/06/2017, Benign Core Biopsy on the left side. Maternal aunt had ovarian cancer, age 71. Risk Values: Ale 5 year model risk: 0.9%. NCI Lifetime model risk: 7.3%. Prior Study Comparison: 03/08/2021 Bilateral Screening Mammogram, [facility]. 04/24/2022 Bilateral MG 3D screening mammo w/cad, [facility]. 05/22/2023 Bilateral MG 3D screening mammo w/cad, [facility]. Tissue Density: There are scattered areas of fibroglandular density. Findings: Analyzed By CAD. Right breast: There is no suspicious group of microcalcifications or new suspicious mass. Left breast: There is no suspicious group of microcalcifications or new suspicious mass. Overall Assessment: Negative, BI-RAD 1 Management: Screening Mammogram of both breasts in [address] [facility] will attempt to contact patient to return for supplemental views and ultrasound if indicated. Patient should continue monthly self-breast exams. A clinical breast exam by your physician is recommended on an annual basis. This exam should not preclude additional follow-up of suspicious palpable abnormalities. Note on Ale scores and lifetime risk: 1. A Ale score greater than 3% is considered moderate risk. If this is the case, consider specialist referral to assess eligibility for a risk reducing agent. 2. If overall lifetime risk for the development of breast cancer is 20% or higher, the patient may qualify for future screening with alternating mammogram and breast MRI. Electronically signed and approved by: Eloy Hardy DO
== END | disposition home or self-care (01) ==
LOC: RADMAMWWP 16:09
PROVIDERS: ATTEND Family Medicine
DX: Z12.31 Encounter for screening mammogram for malignant neoplasm of breast
CPT/HCPCS: 77063; 77067